=== PATIENT | male | born 1980 | race Caucasian/White ===

== ENCOUNTER 2020-08-22 04:01 | Emergency (ER) | payer MEDICAID ==
[2020-08-22 04:09] VITALS: TEMP 97.2
[2020-08-22] MEDS ORDERED: MORPHINE SULFATE 4 MG/ML SYRINGE IV STA (04:31)
[2020-08-22] MEDS ORDERED: SODIUM CHLORIDE 0.9% 500 ML 500 ML IV STA (04:31)
[2020-08-22] MEDS ORDERED: SODIUM CHLORIDE 0.9% 1,000 ML IV STA ×2 (04:31)
--- NOTE | 2020-08-22 04:34 | ED ---
Syncope HPI - General Chief Complaint: Fall Stated Complaint: fall Time Seen by Provider: 08/22/20 04:04 Source: patient, family, RN notes reviewed, old records reviewed Mode of arrival: wheelchair Limitations: no limitations - History of Present Illness Initial Comments: This is a 39-year-old male DF for evaluation patient presents today for evaluation regards to follow-up with syncopal event resulting in head injury and neck pain. No headache chest pain or shortness of breath, no abdominal pain. Patient is complaining of pain to his neck. Patient has had episodes of syncope before especially with standing up, states that he gets really dizzy with change of position. At this point patient has no complaints other than neck pain. Denies drugs or alcohol. No significant medical history. We will patient passed out he was urinating MD Complaint: loss of consciousness, collapsed -: hour(s) Prodromal Symptoms: headache (And neck pain) -: second(s) Witnessed: yes - by bystander (Patient's found patient) Injuries Sustained Associated with Event: Neck Current Symptoms: lightheaded, weakness History: previous syncopal episode Context: getting out of bed, after urination Treatments Prior to Arrival: none - Related Data Allergies Allergy/AdvReac Type Severity Reaction Status Date / Time No Known Allergies Allergy Verified 08/22/20 04:08 Review of Systems ROS Statement: Those systems with pertinent positive or pertinent negative responses have been documented in the HPI. ROS Other: All systems not noted in ROS Statement are negative. Past Medical History Past Medical History: No Reported History History of Any Multi-Drug Resistant Organisms: None Reported Past Surgical History: Appendectomy, Orthopedic Surgery Past Psychological History: No Psychological Hx Reported Smoking Status: Current every day smoker Past Alcohol Use History: None Reported Past Drug Use History: None Reported General Exam Limitations: no limitations General appearance: alert, in no apparent distress Head exam: Present: atraumatic, normocephalic, normal inspection Eye exam: Present: normal appearance, PERRL, EOMI. Absent: scleral icterus, conjunctival injection, periorbital swelling ENT exam: Present: normal exam, mucous membranes dry Neck exam: Present: normal inspection. Absent: tenderness, meningismus, lymphadenopathy Respiratory exam: Present: normal lung sounds bilaterally. Absent: respiratory distress, wheezes, rales, rhonchi, stridor Cardiovascular Exam: Present: normal rhythm, bradycardia, normal heart sounds. Absent: systolic murmur, diastolic murmur, rubs, gallop, clicks GI/Abdominal exam: Present: soft, normal bowel sounds. Absent: distended, tenderness, guarding, rebound, rigid Extremities exam: Present: normal inspection, full ROM, normal capillary refill. Absent: tenderness, pedal edema, joint swelling, calf tenderness Back exam: Present: normal inspection Neurological exam: Present: alert, oriented X3, CN II-XII intact Psychiatric exam: Present: normal affect, normal mood Skin exam: Present: warm, dry, intact, normal color. Absent: rash Course Vital Signs 08/22/20 08/22/20 08/22/20 04:03 04:20 04:40 Temperature 97.2 F L Pulse Rate 57 L 55 L 57 L Respiratory 20 23 17 Rate Blood Pressure 95/52 67/41 98/53 O2 Sat by Pulse 100 100 100 Oximetry 08/22/20 08/22/20 08/22/20 05:00 05:20 06:00 Temperature Pulse Rate 53 L 55 L 48 L Respiratory 12 18 12 Rate Blood Pressure 110/63 112/70 99/60 O2 Sat by Pulse 100 99 98 Oximetry 08/22/20 08/22/20 06:20 07:18 Temperature Pulse Rate 44 L 73 Respiratory 15 18 Rate Blood Pressure 108/68 100/64 O2 Sat by Pulse 99 97 Oximetry - Reevaluation(s) Reevaluation #1: Medical record is reviewed Patient has symptom control, pain is controlled Informed results and questions answered EKG Findings - EKG Comments: EKG Findings:: EKG is sinus bradycardia rate of 56 ME 120 QRS 104 QTc 416 Medical Decision Making - Medical Decision Making 39 male who is healthy with a syncopal event. Heart rate is remains low but normal sinus rhythm of bradycardia sinus bradycardia with normal blood pressure. Patient is able to ambulate without difficulty pain is controlled and patient can be discharged home - Lab Data Result diagrams: 08/22/20 04:38 08/22/20 04:38 Lab Results 08/22/20 08/22/20 08/22/20 Range/Units 04:38 04:38 04:38 WBC 8.9 (3.8-10.6) k/uL RBC 4.74 (4.30-5.90) m/uL Hgb 14.5 (13.0-17.5) gm/dL Hct 44.3 (39.0-53.0) % MCV 93.5 (80.0-100.0) fL MCH 30.7 (25.0-35.0) pg MCHC 32.8 (31.0-37.0) g/dL RDW 13.0 (11.5-15.5) % Plt Count 206 (150-450) k/uL MPV 8.1 Neutrophils % 47 % Lymphocytes % 43 % Monocytes % 5 % Eosinophils % 3 % Basophils % 0 % Neutrophils # 4.2 (1.3-7.7) k/uL Lymphocytes # 3.8 (1.0-4.8) k/uL Monocytes # 0.4 (0-1.0) k/uL Eosinophils # 0.2 (0-0.7) k/uL Basophils # 0.0 (0-0.2) k/uL PT 9.7 (9.0-12.0) sec INR 0.9 (<1.2) APTT 20.0 L (22.0-30.0) sec Sodium 135 L (137-145) mmol/L Potassium 4.1 (3.5-5.1) mmol/L Chloride 105 (98-107) mmol/L Carbon Dioxide 26 (22-30) mmol/L Anion Gap 4 mmol/L BUN 14 (9-20) mg/dL Creatinine 0.90 (0.66-1.25) mg/dL Est GFR (CKD-EPI)AfAm >90 (>60 ml/min/1.73 sqM) Est GFR (CKD-EPI)NonAf >90 (>60 ml/min/1.73 sqM) Glucose 162 H (74-99) mg/dL POC Glucose (mg/dL) (75-99) mg/dL POC Glu [employer] ID Plasma Lactic Acid Denny (0.7-2.0) mmol/L Calcium 9.4 (8.4-10.2) mg/dL Phosphorus 3.3 (2.5-4.5) mg/dL Magnesium 2.0 (1.6-2.3) mg/dL Total Bilirubin 0.4 (0.2-1.3) mg/dL AST 22 (17-59) U/L ALT 15 (4-49) U/L Alkaline Phosphatase 47 (38-126) U/L Creatine Kinase 108 (55-170) U/L Troponin I (0.000-0.034) ng/mL NT-Pro-B Natriuret Pep pg/mL Total Protein 6.6 (6.3-8.2) g/dL Albumin 4.0 (3.5-5.0) g/dL TSH 1.390 (0.465-4.680) mIU/L 08/22/20 08/22/20 08/22/20 Range/Units 04:38 04:38 04:38 WBC (3.8-10.6) k/uL RBC (4.30-5.90) m/uL Hgb (13.0-17.5) gm/dL Hct (39.0-53.0) % MCV (80.0-100.0) fL MCH (25.0-35.0) pg MCHC (31.0-37.0) g/dL RDW (11.5-15.5) % Plt Count (150-450) k/uL MPV Neutrophils % % Lymphocytes % % Monocytes % % Eosinophils % % Basophils % % Neutrophils # (1.3-7.7) k/uL Lymphocytes # (1.0-4.8) k/uL Monocytes # (0-1.0) k/uL Eosinophils # (0-0.7) k/uL Basophils # (0-0.2) k/uL PT (9.0-12.0) sec INR (<1.2) APTT (22.0-30.0) sec Sodium (137-145) mmol/L Potassium (3.5-5.1) mmol/L Chloride (98-107) mmol/L Carbon Dioxide (22-30) mmol/L Anion Gap mmol/L BUN (9-20) mg/dL Creatinine (0.66-1.25) mg/dL Est GFR (CKD-EPI)AfAm (>60 ml/min/1.73 sqM) Est GFR (CKD-EPI)NonAf (>60 ml/min/1.73 sqM) Glucose (74-99) mg/dL POC Glucose (mg/dL) (75-99) mg/dL POC Glu [employer] ID Plasma Lactic Acid Denny 1.5 (0.7-2.0) mmol/L Calcium (8.4-10.2) mg/dL Phosphorus (2.5-4.5) mg/dL Magnesium (1.6-2.3) mg/dL Total Bilirubin (0.2-1.3) mg/dL AST (17-59) U/L ALT (4-49) U/L Alkaline Phosphatase (38-126) U/L Creatine Kinase (55-170) U/L Troponin I <0.012 (0.000-0.034) ng/mL NT-Pro-B Natriuret Pep 85 pg/mL Total Protein (6.3-8.2) g/dL Albumin (3.5-5.0) g/dL TSH (0.465-4.680) mIU/L 08/22/20 Range/Units 04:40 WBC (3.8-10.6) k/uL RBC (4.30-5.90) m/uL Hgb (13.0-17.5) gm/dL Hct (39.0-53.0) % MCV (80.0-100.0) fL MCH (25.0-35.0) pg MCHC (31.0-37.0) g/dL RDW (11.5-15.5) % Plt Count (150-450) k/uL MPV Neutrophils % % Lymphocytes % % Monocytes % % Eosinophils % % Basophils % % Neutrophils # (1.3-7.7) k/uL Lymphocytes # (1.0-4.8) k/uL Monocytes # (0-1.0) k/uL Eosinophils # (0-0.7) k/uL Basophils # (0-0.2) k/uL PT (9.0-12.0) sec INR (<1.2) APTT (22.0-30.0) sec Sodium (137-145) mmol/L Potassium (3.5-5.1) mmol/L Chloride (98-107) mmol/L Carbon Dioxide (22-30) mmol/L Anion Gap mmol/L BUN (9-20) mg/dL Creatinine (0.66-1.25) mg/dL Est GFR (CKD-EPI)AfAm (>60 ml/min/1.73 sqM) Est GFR (CKD-EPI)NonAf (>60 ml/min/1.73 sqM) Glucose (74-99) mg/dL POC Glucose (mg/dL) 139 H (75-99) mg/dL POC Glu [employer] ID Alondra Bautista Plasma Lactic Acid Denny (0.7-2.0) mmol/L Calcium (8.4-10.2) mg/dL Phosphorus (2.5-4.5) mg/dL Magnesium (1.6-2.3) mg/dL Total Bilirubin (0.2-1.3) mg/dL AST (17-59) U/L ALT (4-49) U/L Alkaline Phosphatase (38-126) U/L Creatine Kinase (55-170) U/L Troponin I (0.000-0.034) ng/mL NT-Pro-B Natriuret Pep pg/mL Total Protein (6.3-8.2) g/dL Albumin (3.5-5.0) g/dL TSH (0.465-4.680) mIU/L - Radiology Data Radiology results: report reviewed (CT brain C-spine is negative for acute disease), image reviewed Disposition Clinical Impression: Fall, Syncope, Neck strain, Micturition syncope Disposition: HOME SELF-CARE Condition: Good Instructions (If sedation given, give patient instructions): Cervical Strain (ED), Syncope (ED), Neck Pain (ED) Is patient prescribed a controlled substance at d/c from ED?: No Referrals: José Luis Sanchez MD [Primary Care Provider] - 1-2 days
[2020-08-22 04:42] LABS: Glucose,Whole Blood 139 mg/dL (75-99)
[2020-08-22] MEDS ORDERED: ONDANSETRON 4 MG/2 ML VIAL IVP STA (04:42)
[2020-08-22 04:59] LABS: Basophils % (A) 0 %; Eosinophils # (A) 0.2 k/uL (0-0.7); Eosinophils % (A) 3 %; HCT 44.3 % (39.0-53.0); HGB 14.5 gm/dL (13.0-17.5); Lymphocytes # (A) 3.8 k/uL (1.0-4.8); Lymphocytes % (A) 43 %; MCH 30.7 pg (25.0-35.0); MCHC 32.8 g/dL (31.0-37.0); MCV 93.5 fL (80.0-100.0); Mean Platelet Volume 8.1; Monocytes # (A) 0.4 k/uL (0-1.0); Monocytes % (A) 5 %; Neutrophils # (A) 4.2 k/uL (1.3-7.7); Neutrophils % (A) 47 %; Platelet Count 206 k/uL (150-450); RBC 4.74 m/uL (4.30-5.90); WBC 8.9 k/uL (3.8-10.6)
[2020-08-22 05:01] LABS: ALT 15 U/L (4-49); AST 22 U/L (17-59); African American GFR (CKD) >90 (>60 ml/min/1.73 sqM); Alkaline Phosphatase 47 U/L (38-126); Anion Gap 4 mmol/L; Blood Urea Nitrogen 14 mg/dL (9-20); Calcium 9.4 mg/dL (8.4-10.2); Carbon Dioxide 26 mmol/L (22-30); Chloride 105 mmol/L (98-107); Creatine Kinase 108 U/L (55-170); Glucose 162 mg/dL (74-99); Non-African American GFR(CKD) >90 (>60 ml/min/1.73 sqM); Phosphorus 3.3 mg/dL (2.5-4.5); Potassium 4.1 mmol/L (3.5-5.1); Sodium 135 mmol/L (137-145); Total Bilirubin 0.4 mg/dL (0.2-1.3); Total Protein 6.6 g/dL (6.3-8.2)
[2020-08-22 05:09] LABS: INR 0.9 (<1.2); Prothrombin Time 9.7 sec (9.0-12.0)
--- NOTE | 2020-08-22 05:27 | CT ---
EXAM: CT Head Without Intravenous Contrast CLINICAL HISTORY: ITS.REASON CT Reason: fall TECHNIQUE: Axial computed tomography images of the head/brain without intravenous contrast. CTDI is 55.77 mGy and DLP is 737.65 mGy-cm. This CT exam was performed using one or more of the following dose reduction techniques: automated exposure control, adjustment of the mA and/or kV according to patient size, and/or use of iterative reconstruction technique. COMPARISON: No relevant prior studies available. FINDINGS: Brain: Unremarkable. No hemorrhage. No significant white matter disease. No edema. Ventricles: Unremarkable. No ventriculomegaly. Bones/joints: Unremarkable. No acute fracture. Soft tissues: Unremarkable. Sinuses: There is a 1 cm polyp or mucous retention cyst in the left maxillary sinus. Remaining paranasal sinuses and mastoid air cells are within normal limits. Mastoid air cells: Unremarkable as visualized. No mastoid effusion. IMPRESSION: No acute findings in the head/brain. EXAM: CT Cervical Spine Without Intravenous Contrast CLINICAL HISTORY: ITS.REASON CT Reason: fall TECHNIQUE: Axial computed tomography images of the cervical spine without intravenous contrast. CTDI is 55.77 mGy and DLP is 737.65 mGy-cm. This CT exam was performed using one or more of the following dose reduction techniques: automated exposure control, adjustment of the mA and/or kV according to patient size, and/or use of iterative reconstruction technique. COMPARISON: No relevant prior studies available. FINDINGS: Vertebrae: Unremarkable. No acute fracture. Interspaces: Mild disc space narrowing and osteophytosis at C5-6. No spinal stenosis is seen. There is mild right neural foraminal narrowing. Soft tissues: Unremarkable. DISCS/SPINAL CANAL/NEURAL FORAMINA: C2-C3: Unremarkable. No significant disc disease. No stenosis. C3-C4: Unremarkable. No significant disc disease. No stenosis. C4-C5: Unremarkable. No significant disc disease. No stenosis. C5-C6: Unremarkable. No significant disc disease. No stenosis. C6-C7: Unremarkable. No significant disc disease. No stenosis. C7-T1: Unremarkable. No significant disc disease. No stenosis. IMPRESSION: No acute findings in the cervical spine.
[2020-08-22] MEDS ORDERED: KETOROLAC 15 MG/ML 1 ML VIAL IVP STA (05:55)
[2020-08-22 07:19] VITALS: BP 100/64; PULSE 73; RESP 18
== END 2020-08-22 07:19 | disposition home or self-care (01) ==
LOC: EC 04:01
DX: S16.1XXA Strain of muscle, fascia and tendon at neck level, initial encounter (principal); R55 Syncope and collapse; R39.198 Other difficulties with micturition; R00.1 Bradycardia, unspecified; F17.200 Nicotine dependence, unspecified, uncomplicated
CPT/HCPCS: 36415; 93005; 83880; 80053; 82550; 83605; 83735; 84100; 84443; 84484; 85025; 85610; 85730; 72125; 70450; 99285; 96374; 96375 ×2; 96361; J2270; J2405; J1885

== ENCOUNTER → 2020-09-08 | Outpatient (CLI) | payer MEDICAID ==
[2020-09-08 09:35] LABS: Basophils # (A) 0.1 k/uL (0-0.2); Basophils % (A) 1 %; Eosinophils # (A) 0.2 k/uL (0-0.7); Eosinophils % (A) 3 %; HCT 46.1 % (39.0-53.0); HGB 15.3 gm/dL (13.0-17.5); Lymphocytes # (A) 3.2 k/uL (1.0-4.8); Lymphocytes % (A) 44 %; MCH 31.3 pg (25.0-35.0); MCHC 33.2 g/dL (31.0-37.0); MCV 94.2 fL (80.0-100.0); Mean Platelet Volume 7.6; Monocytes # (A) 0.5 k/uL (0-1.0); Monocytes % (A) 6 %; Neutrophils # (A) 3.2 k/uL (1.3-7.7); Neutrophils % (A) 44 %; Platelet Count 223 k/uL (150-450); RBC 4.89 m/uL (4.30-5.90); RDW 12.7 % (11.5-15.5); WBC 7.2 k/uL (3.8-10.6)
[2020-09-08 16:25] LABS: African American GFR (CKD) 122.5 (60.0-200.0); Albumin 4.5 g/dL (3.80-4.90); Albumin/Globulin Ratio 2.14 (1.60-3.17); Anion Gap 9.5 mmol/L (4.00-12.00); BUN/Creat Ratio 17.78 Ratio (12.00-20.00); Calcium 9.8 mg/dL (8.7-10.3); Carbon Dioxide 28.5 mmol/L (21.6-31.8); Chol/HDL Ratio 2.88; Globulin 2.1 g/dL (1.6-3.3); LDL Cholesterol,Calculated 99.2 mg/dL (0.0-131.0); Non-African American GFR(CKD) 105.7 (60.0-200.0); Potassium 4.4 mmol/L (3.5-5.5); Total Bilirubin 0.4 mg/dL (0.2-1.2); Total Protein 6.6 g/dL (6.2-8.2); VLDL Calculation 20.8 mg/dL (5.00-40.00)
[2020-09-08 16:32] LABS: T4, Free (Free Thyroxine) 1.2 ng/dL (0.80-1.80)
== END | disposition home or self-care (01) ==
LOC: LABWHC1 08:55
PROVIDERS: ATTEND Nurse Practitioner Family
DX: Z00.00 Encounter for general adult medical examination without abnormal findings (principal); R19.7 Diarrhea, unspecified; R55 Syncope and collapse; E55.9 Vitamin D deficiency, unspecified
CPT/HCPCS: 36415; 80053; 80061; 82150; 82306; 83690; 84439; 84443; 85025

== ENCOUNTER → 2020-09-09 | Outpatient (CLI) | payer MEDICAID ==
[2020-09-09 19:19] LABS: EBV-EA (IgG) <0.2 AI; EBV-EBNA(IgG) >8.0 AI; EBV-VCA (IgG) 6.4 AI; EBV-VCA (IgM) 0.2 AI
== END | disposition home or self-care (01) ==
LOC: LABWHC1 11:14
PROVIDERS: ATTEND Nurse Practitioner Family
DX: R53.83 Other fatigue (principal); R53.81 Other malaise; R10.2 Pelvic and perineal pain
CPT/HCPCS: 36415; 86308; 86644; 86645; 86663; 86664; 86665

== ENCOUNTER → 2020-09-15 | Outpatient (CLI) | payer MEDICAID ==
--- NOTE | 2020-09-15 13:10 | P.STRESS ---
- Stress Test Note Stress Test Results/Findings: Exam Performed: stress echo exercise Exam Date: 09/15/20 Reason for Exam: SYNCOPE Height: 6 ft 1 in Weight: 78.6 kg Protocol: STRESS ECHO EXERCISE Stage: 4 Duration of Exercise: 12:00 Resting Heart Rate: 62 Resting Blood Pressure: 116/82 Maximum Achieved Heart Rate: 167 Maximum Achieved Blood Pressure: 177/84 85% PMHR: 151 100% PMHR: 178 METS: 12.1 Technologist Comment: Stress Test Results/Findings: Patient underwent exercise stress echo with a Austen protocol treadmill stress test. Patient exercised into Stage 4 for a total of 12 minutes reaching a total of 12.1 METS. Patient's maximum heart rate was 167 which represented 94 % age- predicted maximum heart rate. Stress test was terminated secondary to lightheadedness. Stress EKG portion: At baseline patient's EKG showed normal sinus rhythm, occasional PVC, normal axis, no significant ST or T wave abnormalities. Beginning and stage III, patient developed [address] depressions in the inferior lateral leads which worsened at peak exercise with [address] depressions mainly in the inferior leads which were downsloping. Stress echo portion: 2-D echocardiogram was performed in the parasternal long, personal short, apical 2 and apical four-chamber views at rest, peak exercise and in recovery. At baseline, echocardiogram showed left ventricular ejection fraction 55 % without wall motion abnormalities. With peak exercise, echocardiogram shows hypokinesis of the basal mid inferior wall consistent with ischemia. Conclusions: 1. Abnormal stress echo with abnormal EKG and echo response consistent with inferior ischemia. 2. Good exercise capacity.
== END | disposition home or self-care (01) ==
LOC: RADNMMAIN 09:03
PROVIDERS: ATTEND Family Medicine
DX: R94.31 Abnormal electrocardiogram [ECG] [EKG] (principal)
CPT/HCPCS: 93351

== ENCOUNTER 2020-10-12 18:51 | Observation (INO) | payer MEDICAID ==
--- NOTE | 2020-10-12 19:04 | ED ---
General Adult HPI - General Chief complaint: Chest Pain Stated complaint: Chest pain Time Seen by Provider: 10/12/20 19:03 Source: patient, family Mode of arrival: ambulatory Limitations: no limitations - History of Present Illness Initial comments: Patient presents the ED with his for evaluation. Patient states that he had a stress test ordered by his PCP after having a syncopal episode in August, and he states that his stress test was abnormal, so he was referred to a occupational therapy program director. Patient states that he saw Dr. Shaw (cardiology), and he has been scheduled to have a cardiac cath done this . Patient states that he has had left-sided chest pain for the past 2 years or so, but he states that his pain became more localized and prominent about 4-1/2 hours ago while at rest. Patient states that his pain has also been radiating to his left scapula today. Patient states that he feels very anxious with everything that has been going on. Patient denies trauma or injury, fever or chills, headache, focal numbness/weakness/neuro deficit, neck/arm/jaw pain, pleuritic pain, dyspnea, cough or cold symptoms, palpitations, dizziness, nausea/vomiting/diaphoresis, abdominal pain, leg or calf swelling or pain, or any other symptoms or complaints. Patient's only identifiable CAD risk factor is a smoking history. - Related Data Allergies Allergy/AdvReac Type Severity Reaction Status Date / Time No Known Allergies Allergy Verified 10/12/20 18:58 Review of Systems ROS Statement: Those systems with pertinent positive or pertinent negative responses have been documented in the HPI. ROS Other: All systems not noted in ROS Statement are negative. Past Medical History Past Medical History: No Reported History Additional Past Medical History / Comment(s): arythemia per patient History of Any Multi-Drug Resistant Organisms: None Reported Past Surgical History: Appendectomy, Orthopedic Surgery Past Psychological History: No Psychological Hx Reported Smoking Status: Current every day smoker Past Alcohol Use History: None Reported Past Drug Use History: None Reported General Exam Limitations: no limitations General appearance: alert, in no apparent distress Head exam: Present: atraumatic, normocephalic Eye exam: Present: normal appearance, EOMI ENT exam: Present: mucous membranes moist Neck exam: Present: other (Trachea is in midline) Respiratory exam: Present: normal lung sounds bilaterally. Absent: respiratory distress, wheezes, rales, rhonchi, stridor, chest wall tenderness Cardiovascular Exam: Present: regular rate, normal rhythm, normal heart sounds, other (Normal radial pulses bilaterally) GI/Abdominal exam: Present: soft. Absent: distended, tenderness, guarding Extremities exam: Present: other (Negative Homans sign bilaterally). Absent: tenderness, pedal edema, calf tenderness Neurological exam: Present: alert, oriented X3. Absent: motor sensory deficit Psychiatric exam: Present: anxious Skin exam: Present: warm, dry, intact, normal color Course Vital Signs 10/12/20 10/12/20 10/12/20 18:55 19:21 19:39 Temperature 98.6 F Pulse Rate 67 56 L Pulse Rate [ 56 L First Front Ventilator ] Respiratory 18 14 Rate Blood Pressure 134/79 130/79 O2 Sat by Pulse 100 99 Oximetry - Reevaluation(s) Reevaluation #1: 10/12/20 20:10 Patient states that his pain has improved with the nitroglycerin that he was given in the ED. Patient denies development of any new pain or symptoms while in the ED. Patient remains alert and breathing comfortably with a normal room air oxygen saturation. Patient and are aware the patient's test results, and they both agree with hospital admission at this time. 10/12/20 20:16 Case, H&P, test results and ED management were discussed with Dr. Burton. He accepts hospital admission. He recommends making the patient NPO after midnight except for medications. He has no further recommendations at this time. EKG Findings - EKG Comments: EKG Findings:: Sinus bradycardia, ventricular rate of 56 bpm, no ectopy, normal [place] and QRS intervals, normal QT interval, normal axis, minimal voltage criteria for LVH, no ST or T-wave abnormality Medical Decision Making - Medical Decision Making Patient's EKG, CXR and labs are all fairly unremarkable. Patient's troponin and d-dimer are both negative. Still, given the patient's chest pain and recently abnormal stress test, will admit the patient to the hospital for further evaluation, cardiac rule out and cardiac monitoring. Dr. Burton has accepted hospital admission. Cardiology consultation has been placed. - Lab Data Result diagrams: 10/12/20 19:21 10/12/20 19:23 Lab Results 10/12/20 10/12/20 10/12/20 Range/Units 19:21 19:23 19:23 WBC 6.8 (3.8-10.6) k/uL RBC 4.67 (4.30-5.90) m/uL Hgb 14.9 (13.0-17.5) gm/dL Hct 42.8 (39.0-53.0) % MCV 91.5 (80.0-100.0) fL MCH 31.9 (25.0-35.0) pg MCHC 34.9 (31.0-37.0) g/dL RDW 12.4 (11.5-15.5) % Plt Count 189 (150-450) k/uL MPV 7.6 Neutrophils % 47 % Lymphocytes % 42 % Monocytes % 6 % Eosinophils % 3 % Basophils % 2 % Neutrophils # 3.2 (1.3-7.7) k/uL Lymphocytes # 2.8 (1.0-4.8) k/uL Monocytes # 0.4 (0-1.0) k/uL Eosinophils # 0.2 (0-0.7) k/uL Basophils # 0.1 (0-0.2) k/uL PT 10.1 (9.0-12.0) sec INR 0.9 (<1.2) APTT 23.0 (22.0-30.0) sec D-Dimer <0.17 (<0.60) mg/L FEU Sodium 139 (137-145) mmol/L Potassium 4.0 (3.5-5.1) mmol/L Chloride 105 (98-107) mmol/L Carbon Dioxide 26 (22-30) mmol/L Anion Gap 8 mmol/L BUN 14 (9-20) mg/dL Creatinine 0.70 (0.66-1.25) mg/dL Est GFR (CKD-EPI)AfAm >90 (>60 ml/min/1.73 sqM) Est GFR (CKD-EPI)NonAf >90 (>60 ml/min/1.73 sqM) Glucose 145 H (74-99) mg/dL Calcium 9.4 (8.4-10.2) mg/dL Magnesium 1.9 (1.6-2.3) mg/dL Total Bilirubin 0.4 (0.2-1.3) mg/dL AST 23 (17-59) U/L ALT 20 (4-49) U/L Alkaline Phosphatase 44 (38-126) U/L Troponin I (0.000-0.034) ng/mL NT-Pro-B Natriuret Pep pg/mL Total Protein 7.1 (6.3-8.2) g/dL Albumin 4.2 (3.5-5.0) g/dL 10/12/20 10/12/20 Range/Units 19:23 19:23 WBC (3.8-10.6) k/uL RBC (4.30-5.90) m/uL Hgb (13.0-17.5) gm/dL Hct (39.0-53.0) % MCV (80.0-100.0) fL MCH (25.0-35.0) pg MCHC (31.0-37.0) g/dL RDW (11.5-15.5) % Plt Count (150-450) k/uL MPV Neutrophils % % Lymphocytes % % Monocytes % % Eosinophils % % Basophils % % Neutrophils # (1.3-7.7) k/uL Lymphocytes # (1.0-4.8) k/uL Monocytes # (0-1.0) k/uL Eosinophils # (0-0.7) k/uL Basophils # (0-0.2) k/uL PT (9.0-12.0) sec INR (<1.2) APTT (22.0-30.0) sec D-Dimer (<0.60) mg/L FEU Sodium (137-145) mmol/L Potassium (3.5-5.1) mmol/L Chloride (98-107) mmol/L Carbon Dioxide (22-30) mmol/L Anion Gap mmol/L BUN (9-20) mg/dL Creatinine (0.66-1.25) mg/dL Est GFR (CKD-EPI)AfAm (>60 ml/min/1.73 sqM) Est GFR (CKD-EPI)NonAf (>60 ml/min/1.73 sqM) Glucose (74-99) mg/dL Calcium (8.4-10.2) mg/dL Magnesium (1.6-2.3) mg/dL Total Bilirubin (0.2-1.3) mg/dL AST (17-59) U/L ALT (4-49) U/L Alkaline Phosphatase (38-126) U/L Troponin I <0.012 (0.000-0.034) ng/mL NT-Pro-B Natriuret Pep 39 pg/mL Total Protein (6.3-8.2) g/dL Albumin (3.5-5.0) g/dL - Radiology Data Radiology results: image reviewed (Chest x-ray is negative) Disposition Clinical Impression: Chest pain Disposition: ADMITTED IP TO THIS HOSP Condition: Stable Is patient prescribed a controlled substance at d/c from ED?: No Referrals: José Luis Sanchez MD [Primary Care Provider] - 1-2 days Time of Disposition: 20:17
[2020-10-12] MEDS ORDERED: ASPIRIN 81 MG PO STA (19:20)
[2020-10-12] MEDS ORDERED: NITROGLYCERIN SL TABS 0.4 MG TAB SUBLINGUAL STA (19:21)
[2020-10-12 19:33] LABS: Basophils # (A) 0.1 k/uL (0-0.2); Basophils % (A) 2 %; Eosinophils # (A) 0.2 k/uL (0-0.7); Eosinophils % (A) 3 %; HCT 42.8 % (39.0-53.0); HGB 14.9 gm/dL (13.0-17.5); Lymphocytes # (A) 2.8 k/uL (1.0-4.8); Lymphocytes % (A) 42 %; MCH 31.9 pg (25.0-35.0); MCHC 34.9 g/dL (31.0-37.0); MCV 91.5 fL (80.0-100.0); Mean Platelet Volume 7.6; Monocytes # (A) 0.4 k/uL (0-1.0); Monocytes % (A) 6 %; Neutrophils # (A) 3.2 k/uL (1.3-7.7); Neutrophils % (A) 47 %; Platelet Count 189 k/uL (150-450); RBC 4.67 m/uL (4.30-5.90); RDW 12.4 % (11.5-15.5); WBC 6.8 k/uL (3.8-10.6)
[2020-10-12 19:50] LABS: D-Dimer <0.17 mg/L FEU (<0.60); INR 0.9 (<1.2); Prothrombin Time 10.1 sec (9.0-12.0)
[2020-10-12 19:54] LABS: ALT 20 U/L (4-49); AST 23 U/L (17-59); African American GFR (CKD) >90 (>60 ml/min/1.73 sqM); Albumin 4.2 g/dL (3.5-5.0); Alkaline Phosphatase 44 U/L (38-126); Anion Gap 8 mmol/L; Blood Urea Nitrogen 14 mg/dL (9-20); Calcium 9.4 mg/dL (8.4-10.2); Carbon Dioxide 26 mmol/L (22-30); Chloride 105 mmol/L (98-107); Glucose 145 mg/dL (74-99); Magnesium 1.9 mg/dL (1.6-2.3); Non-African American GFR(CKD) >90 (>60 ml/min/1.73 sqM); Sodium 139 mmol/L (137-145); Total Bilirubin 0.4 mg/dL (0.2-1.3); Total Protein 7.1 g/dL (6.3-8.2)
--- NOTE | 2020-10-12 19:57 | XR ---
EXAMINATION TYPE: XR chest 2V DATE OF EXAM: 10/12/2020 COMPARISON: NONE HISTORY: Chest pain TECHNIQUE: 2 views FINDINGS: Heart and mediastinum are normal. Lungs are clear. Diaphragm is normal. Bony thorax appears intact. There are chest leads. IMPRESSION: Normal chest.
[2020-10-13 00:06] VITALS: RESP 16
[2020-10-13] MEDS: NITROGLYCERIN OINT 1 INCH/GM PACKET TOPICAL SCH ×3 (01:25→11:58)
[2020-10-13 08:04] LABS: Basophils % (A) 1 %; Eosinophils # (A) 0.2 k/uL (0-0.7); Eosinophils % (A) 3 %; HCT 43.1 % (39.0-53.0); HGB 14.8 gm/dL (13.0-17.5); Lymphocytes # (A) 1.9 k/uL (1.0-4.8); Lymphocytes % (A) 33 %; MCH 31.9 pg (25.0-35.0); MCHC 34.4 g/dL (31.0-37.0); MCV 92.8 fL (80.0-100.0); Mean Platelet Volume 7.8; Monocytes # (A) 0.4 k/uL (0-1.0); Monocytes % (A) 7 %; Neutrophils # (A) 3.2 k/uL (1.3-7.7); Neutrophils % (A) 55 %; Platelet Count 179 k/uL (150-450); RBC 4.65 m/uL (4.30-5.90); RDW 12.5 % (11.5-15.5); WBC 5.7 k/uL (3.8-10.6)
[2020-10-13 08:13] LABS: ALT 17 U/L (4-49); AST 20 U/L (17-59); African American GFR (CKD) >90 (>60 ml/min/1.73 sqM); Alkaline Phosphatase 39 U/L (38-126); Anion Gap 4 mmol/L; Blood Urea Nitrogen 13 mg/dL (9-20); Calcium 9.4 mg/dL (8.4-10.2); Carbon Dioxide 29 mmol/L (22-30); Chloride 106 mmol/L (98-107); Glucose 96 mg/dL (74-99); Non-African American GFR(CKD) >90 (>60 ml/min/1.73 sqM); Potassium 4.5 mmol/L (3.5-5.1); Sodium 139 mmol/L (137-145); Total Bilirubin 0.7 mg/dL (0.2-1.3); Total Protein 6.7 g/dL (6.3-8.2)
[2020-10-13] MEDS ORDERED: ASPIRIN 81 MG PO SCH (09:00)
[2020-10-13] MEDS ORDERED: ATORVASTATIN 80 MG TAB PO STA (09:02)
[2020-10-13] MEDS ORDERED: ALPRAZolam 0.5 MG TAB PO PRN (09:02)
[2020-10-13] MEDS ORDERED: SODIUM CHLORIDE 0.9% 1,000 ML in EMPTY BAG 1 BAG IV ONE (09:02)
[2020-10-13] MEDS ORDERED: ALPRAZolam 0.25 MG TAB PO PRN (09:02)
[2020-10-13] MEDS ORDERED: ASPIRIN 325 MG TAB PO STA (09:02)
[2020-10-13] MEDS ORDERED: SODIUM CHLORIDE 0.9% 1,000 ML IV ONE (09:23)
[2020-10-13] MEDS: MIDAZOLAM 2 MG/2 ML VIAL IV ONE ×2 (09:35→09:40)
[2020-10-13] MEDS ORDERED: LIDOCAINE 1% INJ 10MG/ML (20 ML MDV) SQ ONE (09:41)
[2020-10-13] MEDS ORDERED: VERAPAMIL SYRINGE (5 MG/10 ML) INTRAARTER ONE (09:42)
[2020-10-13] MEDS ORDERED: IOPAMIDOL-370 125ML BTL INJ ONE (09:49)
[2020-10-13] MEDS ORDERED: RX INFO: IV CONTRAST WAS GIVEN 1 EACH MISC MISCELLANE PRN (09:57)
[2020-10-13] MEDS ORDERED: SODIUM CHLORIDE 0.9% 1,000 ML IV SCH (10:00)
[2020-10-13 10:14] VITALS: TEMP 97.8
--- NOTE | 2020-10-13 10:44 | P.CRDCN ---
History of Present Illness History of present illness: HISTORY OF PRESENTING ILLNESS This is a pleasant 40-year-old male past medical history significant for chronic nicotine dependence. He follows in the office with Dr. Shaw. We have been asked to see in consultation for chest pain. He states over the weekend him and his when out of town. There are [place] yesterday and he felt increasingly weak and fatigued. He then developed a discomfort in the left scapular region described as a dull tight sensation wrapped around the left precordial region. The discomfort was associated with mild shortness of breath and nausea. It persisted for a few hours with no specific aggravating or alleviating factors. He presented to the emergency department continuing to have ongoing chest discomfort and was given a sublingual nitroglycerin which did relieve his discomfort. He has had no further chest pain since that time. He recently underwent a stress echocardiogram in September 2020 revealing inferior ischemia. He is scheduled to undergo cardiac catheterization with Dr. Shaw later this week. Review of records indicate he had a lipid profile drawn in September revealing an LDL of 99 and HDL of 64. DIAGNOSTICS EKG reveals sinus bradycardia heart rate of 56. Telemetry tracings indicate one run of nonsustained wide complex ventricular tachycardia this morning, 5 beats. The patient was asymptomatic. Chest xray negative for an acute cardiopulmonary process. Laboratory reviewed, CBC unremarkable, d-dimer less than 0.17, sodium 139, potassium 4.5, creatinine 0.74, cardiac enzymes negative 3, proBNP 39. Current cardiac medications include aspirin 81 mg daily. REVIEW OF SYSTEMS At the time of my exam: CONSTITUTIONAL: Denies fever or chills. CARDIOVASCULAR: Denies chest pain, shortness of breath, orthopnea, PND or p alpitations. RESPIRATORY: Denies cough. GASTROINTESTINAL: Denies abdominal pain, diarrhea, constipation, nausea or vomiting. MUSCULOSKELETAL: Denies myalgias. NEUROLOGIC: Denies numbness, tingling, headacbe or weakness. ENDOCRINE: Denies fatigue, weight change, polydipsia or polyurina. GENITOURINARY: Denies burning, hematuria or urgency with micturation. HEMATOLOGIC: Denies history of anemia or bleeding. PHYSICAL EXAMINATION Blood pressure 129/78 heart rate 54 afebrile and maintaining oxygen saturation on room air. CONSTITUTIONAL: No apparent distress. HEENT: Head is normocephalic. Pupils are equal, round. Sclerae anicteric. Mucous membranes of the mouth are moist. No JVD. No carotid bruit. CHEST EXAMINATION: Lungs are clear to auscultation. No chest wall tenderness is noted on palpation or with deep breathing. HEART EXAMINATION: Regular rate and rhythm. S1, S2 heard. No murmurs, gallops or rub. ABDOMEN: Soft, nontender. Positive bowel sounds. EXTREMITIES: 2+ peripheral pulses, no lower extremity edema and no calf tenderness. NEUROLOGIC EXAMINATION: Patient is awake, alert and oriented x3. ASSESSMENT Chest pain Abnormal stress test revealing inferior ischemia Chronic nicotine dependence PLAN Given his abnormal stress test and ongoing chest discomfort we recommend procee ding with coronary angiography to assess for underlying coronary artery disease. I have discussed the risks, benefits and alternative therapies for the above- mentioned procedure and for both sedation/analgesia as well as necessary blood product administration, if indicated, as they pertain to this patient. The patient has indicated understanding and acceptance of the risks and procedures discussed. Questions have been answered appropriately and he is agreeable to move forward with the above-stated procedure. Obtain 2-D echocardiogram and Doppler study to assess cardiac structure and function. Recommend smoking cessation. Further recommendations to follow based upon clinical course. Thank you kindly for this consultation. Nurse Practitioner note has been reviewed, I agree with a documented findings and plan of care. Patient was seen and examined. Past Medical History Past Medical History: No Reported History Additional Past Medical History / Comment(s): arythemia per patient History of Any Multi-Drug Resistant Organisms: None Reported Past Surgical History: Appendectomy, Orthopedic Surgery Past Anesthesia/Blood Transfusion Reactions: No Reported Reaction Past Psychological History: No Psychological Hx Reported Smoking Status: Current some day smoker Past Alcohol Use History: None Reported Past Drug Use History: None Reported Medications and Allergies Home Medications Medication Instructions Recorded Confirmed Type Aspirin EC [Ecotrin Low Dose] 81 mg PO DAILY 10/12/20 10/12/20 History Ergocalciferol (Vitamin D2) 1,250 mcg PO WE 10/12/20 10/12/20 History [Drisdol (50,000 units)] Allergies Allergy/AdvReac Type Severity Reaction Status Date / Time No Known Allergies Allergy Verified 10/12/20 20:34 Physical Exam Vitals: Vital Signs Temp Pulse Pulse Resp BP BP Pulse Ox 10/13/20 03:00 97.5 F L 54 L 16 109/66 98 10/12/20 21:00 51 L 01/10/21 20:40 98.0 F 51 L 16 124/72 98 10/12/20 20:31 97.8 F 48 L 18 95/55 98 10/12/20 20:00 48 L 16 123/72 98 10/12/20 19:39 56 L 10/12/20 19:21 56 L 14 130/79 99 10/12/20 18:55 98.6 F 67 18 134/79 100 Intake and Output 10/12/20 10/13/20 10/13/20 22:59 06:59 14:59 Other: # Voids 0 0 Weight 79.832 kg Results 10/13/20 07:28 10/13/20 07:28 Cardiac Enzymes 10/12/20 10/12/20 10/12/20 Range/Units 19:23 19:23 22:35 AST 23 (17-59) U/L Troponin I <0.012 <0.012 (0.000-0.034) ng/mL 10/13/20 Range/Units 01:26 AST (17-59) U/L Troponin I <0.012 (0.000-0.034) ng/mL Coagulation 10/12/20 Range/Units 19:23 PT 10.1 (9.0-12.0) sec APTT 23.0 (22.0-30.0) sec CBC 10/12/20 Range/Units 19:21 WBC 6.8 (3.8-10.6) k/uL RBC 4.67 (4.30-5.90) m/uL Hgb 14.9 (13.0-17.5) gm/dL Hct 42.8 (39.0-53.0) % Plt Count 189 (150-450) k/uL Comprehensive Metabolic Panel 10/12/20 Range/Units 19:23 Sodium 139 (137-145) mmol/L Potassium 4.0 (3.5-5.1) mmol/L Chloride 105 (98-107) mmol/L Carbon Dioxide 26 (22-30) mmol/L BUN 14 (9-20) mg/dL Creatinine 0.70 (0.66-1.25) mg/dL Glucose 145 H (74-99) mg/dL Calcium 9.4 (8.4-10.2) mg/dL AST 23 (17-59) U/L ALT 20 (4-49) U/L Alkaline Phosphatase 44 (38-126) U/L Total Protein 7.1 (6.3-8.2) g/dL Albumin 4.2 (3.5-5.0) g/dL Current Medications Generic Name Dose Route Start Last Admin Trade Name Freq PRN Reason Stop Dose Admin Aspirin 81 mg 10/13/20 09:00 Aspirin 81 Mg PO DAILY NOLAN Ergocalciferol 50,000 unit 10/15/20 09:00 Ergocalciferol 50,000 Unit Cap PO We@0900 NOLAN Nitroglycerin 0.5 inch 10/13/20 00:00 10/13/20 07:03 Nitroglycerin Oint 1 Inch/Gm Packet TOPICAL Not Given Q6HR NOLAN Intake and Output 10/12/20 10/13/20 10/13/20 22:59 06:59 14:59 Other: # Voids 0 0 Weight 79.832 kg 10/12/20 19:21 10/12/20 19:23
--- NOTE | 2020-10-13 11:23 | CC ---
CARDIAC CATHETERIZATION REPORT DATE OF SERVICE: 10/13/2020 PERFORMING PHYSICIAN: Fred Shaw MD. PROCEDURE PERFORMED: 1. Selective right and left coronary angiogram. 2. Left heart catheterization. INDICATION: Chest discomfort and abnormal stress test in this gentleman who is a 40-year-old with history of smoking. APPROACH: Right radial artery. COMPLICATION: None. LEVEL OF SEDATION: Moderate with sedation length of 11 minutes. PROCEDURE DESCRIPTION: After obtaining an informed consent, the patient was brought to the cardiac kiln labourer. The right radial artery was cannulated using micropuncture technique, the micropuncture wire passed easily then I placed a 6-Macedonian sheath in the right radial artery. I did give the patient 2 mg of verapamil IA and 8000 units of heparin IV. Selective right and left coronary angiogram performed using JR4 and JL3.5 catheters. Left heart catheterization was performed using the JR4 catheter which crossed the LV then I did pullback across aortic valve. The procedure was completed without any complication. SELECTIVE CORONARY ANGIOGRAM: 1. The right coronary artery is a large caliber vessel. It is a dominant vessel and appeared to be angiographically normal. It distally bifurcates into PDA and PLV branches, both appeared to be angiographically normal. 2. The left main is angiographically normal. It bifurcates into LCX, ramus and LAD. 3. The LCX is a large caliber vessel. It is a nondominant vessel and the LCX is angiographically normal. It gives rise into OM branch which appeared to be angiographically normal. 4. The ramus intermedius is a large caliber vessel and appeared to be angiographically normal. 5. The LAD is a large caliber vessel and seems to be angiographically normal and proximally gives rise into a large diagonal branch which seems to be angiographically normal. HEMODYNAMICS: The LVEDP was 4-5 mmHg without significant gradient across the aortic valve. CONCLUSION: 1. Normal coronary angiogram. 2. Normal LVEDP. MMODL / IJN: [id number] /
[2020-10-13 15:54] VITALS: BP 125/75; PULSE 61
--- NOTE | 2020-10-13 18:48 | ECHOF ---
Referral Reason:cp MEASUREMENTS -------- HEIGHT: 180.3 cm WEIGHT: 79.8 kg BP: 109/66 RVIDd: 2.4 cm (< 3.3) IVSd: 0.8 cm (0.6 - 1.1) LVIDd: 5.4 cm (3.9 - 5.3) LVPWd: 0.9 cm (0.6 - 1.1) IVSs: 1.9 cm LVIDs: 2.0 cm LVPWs: 1.7 cm LAESV Index (A-L): 20.36 ml/m Ao Diam: 3.0 cm (2.0 - 3.7) AV Cusp: 2.6 cm (1.5 - 2.6) LA Diam: 2.5 cm (2.7 - 3.8) MV EXCURSION: 23.601 mm (> 18.000) MV EF SLOPE: 168 mm/s (70 - 150) EPSS: 0.7 cm MV E Ankur: 0.54 m/s MV DecT: 296 ms MV A Ankur: 0.42 m/s MV E/A Ratio: 1.27 RAP: 5.00 mmHg RVSP: 27.74 mmHg FINDINGS -------- This was a technically good study. The left ventricular size is normal. Left ventricular wall thickness is normal. Overall left vent ricular systolic function is normal with, an EF between 55 - 60 %. The diastolic filling pattern is normal for the age of the patient 4.68. The right ventricle is normal in size. The left atrial size is normal. The right atrial size is normal. Interatrial and interventricular septum intact. The aortic valve is trileaflet and appears structurally normal. The mitral valve is normal. There is trace mitral regurgitation. The tricuspid valve appears structurally normal. Trace tricuspid regurgitation present. Right basilia tricular systolic pressure is normal at < 35 mmHg. There is no pulmonic regurgitation present. The aortic root size is normal. Normal inferior vena cava with normal inspiratory collapse consistent with estimated right atrial pre ssure of 5 mmHg. There is no pericardial effusion. CONCLUSIONS -------- 1. The left ventricular size is normal. 2. Left ventricular wall thickness is normal. 3. Overall left ventricular systolic function is normal with, an EF between 55 - 60 %. 4. The diastolic filling pattern is normal for the age of the patient 4.68 5. There is trace mitral regurgitation. 6. Trace tricuspid regurgitation present. 7. There is no pericardial effusion. COMPUTER SYSTEMS TECHNICIAN: Rosana Samson RDCS
--- NOTE | 2020-10-13 23:45 | P.HPIM ---
History of Present Illness H&P Date: 10/13/20 Chief Complaint: Chest pain History of presenting complaint: This is a pleasant 40-year-old patient who follows Dr. Sanchez. Patient for last 2 years been having pain at a very specific spot. It is described at the anterior axillary line just above the rib cage border from below. It is localized. Worse on moving. Patient is to wrestling. He heard a pop and since his been hurting since then. Recently also patient noticed some pain between the spinous scapula. Swished and that happened yesterday. Patient had seen cardiology. And was due for a cardiac catheterization as an outpatient. Otherwise patient is a good exercise tolerance. Review of systems: GEN.: None EYES: None HEENT: None NECK: None RESPIRATORY: None CARDIOVASCULAR: As above GASTROINTESTINAL: None GENITOURINARY: None MUSCULOSKELETAL: As above LYMPHATICS: None HEMATOLOGICAL: None PSYCHIATRY: Anxious NEUROLOGICAL: None Past medical history to include: None Social history: Smokes a pack a day. Does not drink alcohol. . Owns a concrete company Family history: Reviewed, noncontributory to presentation Physical examination: VITAL SIGNS: 98.6, 67, 18, 134/79, 100% on room air GENERAL: BMI 23.2, laying in bed, comfortable. EYES: Pupils equal. Conjunctiva normal. HEENT: External appearance of nose and ears normal, oral cavity grossly normal. NECK: JVD not raised; masses not palpable. HEART: First and second heart sounds are normal; no edema. LUNGS: Respiratory rate normal; clear to auscultation MUSCULAR skeletal: Reproducible chest pain at the localized spot at the anterior axillary line about 3 inches above the lower rib cage. ABDOMEN: Soft, nontender, liver spleen not palpable, no masses palpable. PSYCH: Alert and oriented x3; mood and affect normal. NEUROLOGICAL: Cranial nerves grossly intact; no facial asymmetry, power and sensation grossly intact. LYMPHATICS: No lymph nodes palpable in the axilla and neck INVESTIGATIONS, reviewed in the clinical context: White count 6.8 hemoglobin 14.9 platelets 189 potassium 4 creatinine 0.70 Troponin I 3 negative EKG tracing personally reviewed by me-normal sinus rhythm, rate of 56 Chest x-ray film personally reviewed by me-some hyperinflation Assessment: -Anterior chest wall pain. Probably muscular skeletal. Rule out a cardiac cause -Chronic nicotine dependence patient cigarette smoker Plan: 2-D echocardiogram was ordered. Patient been taking for a cardiac catheterization. Cardiology consulted. Past Medical History Past Medical History: No Reported History Additional Past Medical History / Comment(s): arythemia per patient History of Any Multi-Drug Resistant Organisms: None Reported Past Surgical History: Appendectomy, Orthopedic Surgery Past Anesthesia/Blood Transfusion Reactions: No Reported Reaction Past Psychological History: No Psychological Hx Reported Smoking Status: Current some day smoker Past Alcohol Use History: None Reported Past Drug Use History: None Reported Medications and Allergies Home Medications Medication Instructions Recorded Confirmed Type Aspirin EC [Ecotrin Low Dose] 81 mg PO DAILY 10/12/20 10/12/20 History Ergocalciferol (Vitamin D2) 1,250 mcg PO WE 10/12/20 10/12/20 History [Drisdol (50,000 units)] Allergies Allergy/AdvReac Type Severity Reaction Status Date / Time No Known Allergies Allergy Verified 10/12/20 20:34 Physical Exam Vitals: Vital Signs Temp Pulse Pulse Resp BP BP Pulse Ox 10/13/20 09:00 97.8 F 54 L 16 129/78 96 10/13/20 03:00 97.5 F L 54 L 16 109/66 98 10/12/20 21:00 51 L 10/12/20 20:40 98.0 F 51 L 16 124/72 98 10/12/20 20:31 97.8 F 48 L 18 95/55 98 10/12/20 20:00 48 L 16 123/72 98 10/12/20 19:39 56 L 10/12/20 19:21 56 L 14 130/79 99 10/12/20 18:55 98.6 F 67 18 134/79 100 Intake and Output 10/12/20 10/13/20 10/13/20 22:59 06:59 14:59 Intake Total 50 Balance 50 Intake: IV 50 Other: # Voids 0 0 0 Weight 79.832 kg Results CBC & Chem 7: 10/13/20 07:28 10/13/20 07:28 Labs: Abnormal Lab Results - Last 24 Hours (Table) 10/12/20 Range/Units 19:23 Glucose 145 H (74-99) mg/dL Thrombosis Risk Factor Assmnt - Choose All That Apply Any of the Below Risk Factors Present?: Yes
--- NOTE | 2020-10-13 23:48 | P.DS ---
Providers Date of admission: 10/12/20 20:17 Expected date of discharge: 10/13/20 Attending physician: Marito Burton Consults: 10/12/20 20:18 Consult Physician Urgent Consulting Provider: Fred Shaw Consult Reason/Comments: chest pain, recent abnormal stress test Do you want consulting provider notified?: Yes Primary care physician: [facility] Course: Chief Complaint: Chest pain History of presenting complaint: This is a pleasant 40-year-old patient who follows Dr. Sanchez. Patient for last 2 years been having pain at a very specific spot. It is described at the anterior axillary line just above the rib cage border from below. It is localized. Worse on moving. Patient is to wrestling. He heard a pop and since his been hurting since then. Recently also patient noticed some pain between the scapula. - happened yesterday. Patient had seen cardiology. And was due for a cardiac catheterization as an outpatient. Otherwise patient is a good exercise tolerance. Patient negative troponins. Taken to the cardiac catheter lab-normal coronaries. Patient's pain is felt to be muscular skeletal. Advised against smoking. Consultation: Cardiology associates Past medical history to include: None Social history: Smokes a pack a day. Does not drink alcohol. . Owns a concrete company Family history: Reviewed, noncontributory to presentation Physical examination: VITAL SIGNS: 61, 16, 125 was 35, 97% room air GENERAL: BMI 23.2, laying in bed, comfortable. EYES: Pupils equal. Conjunctiva normal. HEENT: External appearance of nose and ears normal, oral cavity grossly normal. NECK: JVD not raised; masses not palpable. HEART: First and second heart sounds are normal; no edema. LUNGS: Respiratory rate normal; clear to auscultation MUSCULAR skeletal: Reproducible chest pain at the localized spot at the anterior axillary line about 3 inches above the lower rib cage. ABDOMEN: Soft, nontender, liver spleen not palpable, no masses palpable. PSYCH: Alert and oriented x3; mood and affect normal. INVESTIGATIONS, reviewed in the clinical context: White count 6.8 hemoglobin 14.9 platelets 189 potassium 4 creatinine 0.70 Troponin I 3 negative EKG tracing personally reviewed by me-normal sinus rhythm, rate of 56 Chest x-ray film personally reviewed by me-some hyperinflation 2-D echocardiogram-EF 55 have a 60%. Cardiac catheterization--normal coronaries Assessment: -Anterior chest wall pain. muscular skeletal. -Chronic nicotine dependence patient cigarette smoker Disposition: Home Patient Condition at Discharge: Stable Plan - Discharge Summary Discharge Rx Participant: No New Discharge Prescriptions: Continue Aspirin EC [Ecotrin Low Dose] 81 mg PO DAILY Ergocalciferol (Vitamin D2) [Drisdol (50,000 units)] 1,250 mcg PO WE Discharge Medication List Aspirin EC [Ecotrin Low Dose] 81 mg PO DAILY 10/12/20 [History] Ergocalciferol (Vitamin D2) [Drisdol (50,000 units)] 1,250 mcg PO WE 10/12/20 [History] Follow up Appointment(s)/Referral(s): José Luis Sanchez MD [Primary Care Provider] - 1-2 days Fred Shaw MD [STAFF PHYSICIAN] - 10/21/20 3:45 pm (Appointment made for 10/21/20 at 3:45pm . [address] location ) Patient Instructions/Handouts: Left Heart Catheterization (DC), After Radial Heart Catheterization (GEN)
[2020-10-14] MEDS ORDERED: HEPARIN SODIUM,PORCINE 2,500 UNIT in SODIUM CHLORIDE 0.9% 250 ML IRRIGATION PRN (07:00)
[2020-10-14] MEDS ORDERED: HEPARIN SODIUM,PORCINE 10,000 UNIT in SODIUM CHLORIDE 0.9% 1,000 ML IRRIGATION PRN (07:00)
[2020-10-14] MEDS ORDERED: ASPIRIN 81 MG PO SCH (09:00)
[2020-10-15] MEDS ORDERED: ERGOCALCIFEROL 50,000 UNIT CAP PO SCH (09:00)
== END 2020-10-13 17:02 ==
LOC: EC 18:51 → 1SOBS 20:17
PROVIDERS: ADMIT Hospitalist; ATTEND Hospitalist
DX: R07.89 Other chest pain (principal); R94.39 Abnormal result of other cardiovascular function study; F17.210 Nicotine dependence, cigarettes, uncomplicated; R00.1 Bradycardia, unspecified; R53.1 Weakness; R53.83 Other fatigue; R06.02 Shortness of breath; R11.0 Nausea; Z79.82 Long term (current) use of aspirin; Z90.49 Acquired absence of other specified parts of digestive tract; Z98.890 Other specified postprocedural states
CPT/HCPCS: 99285; 36415; 93005; 93306; 93458; 85379; 83880; 80053 ×2; 83735; 84484 ×2; 85025 ×2; 85610; 85730; 71046; 99152; G0378 ×2; C1769 ×2; C1894; J2250; J2001; J1644; Q9967